=== PATIENT | female | born 1990 | race Caucasian/White ===

== ENCOUNTER 2016-09-19 03:04 | Emergency (ER) | payer OTHER ==
[~2016-09-19] VITALS: Ht 167.6 cm; Wt 102.5 kg
[~2016-09-19 03:04] MED LIST: DICL75 PO; SERT-132 PO
[2016-09-19 03:15] VITALS: BP 133/79; PULSE 117; RESP 20; TEMP 98.8; O2SAT 96
[2016-09-19 03:22] VITALS: BP 132/87; PULSE 91; RESP 18; TEMP 98.8; O2SAT 100
[2016-09-19] MEDS ORDERED: CYCL1TAB29 PO (03:54)
[2016-09-19] MEDS ORDERED: NORC5TAB PO (03:54)
--- NOTE | 2016-09-19 03:54 | PD ---
HPI . Low back pain Chief Complaint: Flank/Kidney Pain Time Seen by Provider: 03:23 Travel History International Travel<30 days: No Contact w/Intl Traveler<30days: No History of Present Illness HPI Patient presents with low back pain. She states that she's been having problems with low back pain for the last several months. She has been treated with homeopathic herbs. She tried using some ice on it last night and had temporary relief of her pain. She went to bed and was awakened couple of hours later by severe pain in her back. She denies any bowel or bladder incontinence. She has not been running any fever. She does state that she's had some left thigh pain in the last several days. She denies any extremity weakness. [id number]: Lower lumbar back DURATION: Several months TIMING: Acutely worse starting about an hour ago MODIFYING FACTORS: Exacerbated by movement ASSOCIATED SYMPTOMS: Left thigh pain PFSH Past Medical History Cancer: No Cardiovascular Problems: No Diabetes: No Diminished Hearing: No Endocrine: No Genitourinary: No Hepatitis: No Hiatal Hernia: No Immune Disorder: No Medical other: Yes (Back Surgery 2014) Musculoskeletal: Yes (BACK PAIN) Neurologic: No Psychiatric: No Reproductive: No Respiratory: No Thyroid Disease: No Influenza Vaccination: No ?: Not LMP: 08/30/2016 Menopausal: No : 1 Past Surgical History Surgical History: No Previous Surgery Body Medical Devices: PLATE AND SCREWS RIGHT LEG Section: Yes Gynecologic Surgery: Yes ( 04/20) Social History Alcohol Use: No Tobacco Use: No Substance Use: No Allergies-Medications (Allergen,Severity, Reaction): Coded Allergies: MRI PRECAUTION (Verified Adverse Reaction, Severe, 09/19/16) HAS METAL PLATE IN LEG Reported Meds & Prescriptions Reported Meds & Active Scripts Active Prednisone (48) 10 mg tab Dose Pack (Prednisone) 10 Mg Dspk 10 Mg PO DIRECTED Flexeril (Cyclobenzaprine HCl) 10 Mg Tab 10 Mg PO TID [place] (Hydrocodone-Acetaminophen) 5-325 mg Tab 1 Tab PO Q4H PRN Sertraline 50 mg (Sertraline HCl) 50 Mg Tab 1 Tab PO HS Diclofenac Sodium Dr (Diclofenac Sod) 75 Mg Tab 75 Mg PO DAILY Review of Systems Except as stated in HPI: all other systems reviewed are Neg General / Constitutional: No: Fever, Chills Genitourinary: No: Incontinence Musculoskeletal: Positive: Limited ROM, Pain (low back pain), No: Weakness Neurologic: No: Weakness, Paresthesia, Incontinence Physical Exam Narrative GENERAL: Awake and alert and in no acute distress. SKIN: Warm and dry. CARDIOVASCULAR: Regular rate and rhythm. RESPIRATORY: No accessory muscle use. MUSCULOSKELETAL: No obvious deformities. No edema. Tender in the lower lumbar region. Straight leg raise is positive on the left. Straight leg raise on the right is negative. NEUROLOGICAL: Awake and alert. No obvious cranial nerve deficits. Motor grossly within normal limits. Normal speech. PSYCHIATRIC: Appropriate mood and affect; insight and judgment normal. Data Data Last Documented VS Vital Signs Date Time Temp Pulse Resp B/P Pulse Ox O2 Delivery O2 Flow Rate FiO2 09/19/16 06:36 98 17 136/75 98 Room Air 09/19/16 03:22 98.8 Orders ^ Saline Lock (09/19/16 03:46) Morphine Inj (Morphine Inj) (09/19/16 04:00) Ondansetron Inj (Zofran Inj) (09/19/16 04:00) Lorazepam Inj (Ativan Inj) (09/19/16 04:00) Dexamethasone Inj (Decadron Inj) (09/19/16 04:00) Ketorolac Inj (Toradol Inj) (09/19/16 05:00) Mri L Spine W/O Contrast (09/19/16 05:33) Ed Urine Pregnancytest Poc (09/19/16 05:33) Hydromorphone Pf Inj (Dilaudid Pf Inj) (09/19/16 05:45) MDM Medical Decision Making Medical Screen Exam Complete: Yes Emergency Medical Condition: Yes Differential Diagnosis Differential diagnosis includes but is not limited to muscular low back pain, DDD, spinal stenosis, epidural abscess, sciatica, kidney infection or stone. Narrative Course Patient presents for treatment of low back pain. It sounds like she has sciatica. She reports little if any relief following morphine 4 mg IV, Ativan 1 mg IV and Decadron 10 mg IV. Patient continued to complain of pain following Toradol. I have subsequently ordered Dilaudid as well as an MRI of her L-spine. Her care will ultimately be turned over to the oncoming physician pending the MRI. Diagnosis Primary Impression: Low back pain Qualified Code: M54.42 - Chronic midline low back pain with left-sided sciatica Additional Impression: Sciatica Qualified Code: M54.32 - Sciatica of left side Patient Instructions: General Instructions, Narcotic given in the ED, Sciatica (DC) Scripts Prednisone (48) 10 mg tab Dose Pack 10 Mg Dspk10 Mg PO DIRECTED #1 DSPK Ref 0 Prov:Grisel Gaytan MD 09/19/16 Cyclobenzaprine (Flexeril)10 Mg Tab10 Mg PO TID #30 TAB Ref 0 Prov:Grisel Gaytan MD 09/19/16 Hydrocodone-Acetaminophen ([place])5-325 mg Tab1 Tab PO Q4H PRN (PAIN) #12 TAB Ref 0 Prov:Grisel Gaytan MD 09/19/16 Condition: Stable Grisel Gaytan MD Sep 19, 2016 03:54
[2016-09-19] MEDS ORDERED: LORazepam 2 MG/ML VIAL IV PUSH ONE (04:00)
[2016-09-19] MEDS ORDERED: MORPHINE SULFATE 4 MG/ML INJ IV PUSH ONE (04:00)
[2016-09-19] MEDS ORDERED: DEXAMETHASONE SOD PHOS 20 MG/5 ML VIAL IV PUSH ONE (04:00)
[2016-09-19] MEDS ORDERED: ONDANSETRON HCL 4 MG/2 ML VIAL IV PUSH ONE (04:00)
[2016-09-19] MEDS ORDERED: KETOROLAC TROMETHAMINE 30 MG/ML (IVP) VIAL IV PUSH ONE (05:00)
[2016-09-19] MEDS ORDERED: PRED10PA2 PO (05:38)
[2016-09-19] MEDS ORDERED: HYDROmorphone HCL PF 1 MG/ML VIAL IV PUSH ONE (05:45)
[2016-09-19 06:36] VITALS: BP 136/75; PULSE 98; RESP 17; O2SAT 98
[2016-09-19 08:35] VITALS: BP 146/71; PULSE 99; RESP 18; O2SAT 96
--- NOTE | 2016-09-19 09:36 | RADHPO ---
EXAM DATE/TIME: 09/19/2016 07:39 [facility] COMPARISON: SPINE LUMBAR LATERAL ONLY, February 22, 2015, 6:59. INDICATIONS: Pain. NKI. Pain worse on left side. MEDICAL HISTORY: None. SURGICAL HISTORY: Microdiscectomy L4-5. Left ankle. ENCOUNTER: Initial ACUITY: 1 day PAIN SCORE: 6/10 LOCATION: Back TECHNIQUE: Multiplanar multisequence MRI of the lumbar spine was performed without contrast. FINDINGS: Marrow signal by MRI appears homogeneous and normal. Signal intensity in the conus is normal. L1-L2: The thecal sac has a normal diameter. No evidence of disc bulge or protrusion. The neural f oramina are patent bilaterally. L2-L3: The thecal sac has a normal diameter. No evidence of disc bulge or protrusion. The neural f oramina are patent bilaterally. L3-L4: There is very mild bulging at L3-4 without significant spinal stenosis. Neural foramina are adequate. Facets are normal. L4-L5: The patient has a previous discectomy at L4-5. There is mild discogenic changes in the facet s with loss of dis space height. There is minimal soft tissue in the anterior epidural space without significant neural compression. L5-S1: There is mild disc bulge in L5-S1 more centered to the right than the left in spite of the hi story. There is no focal disc herniation. CONCLUSION: 1. Previous discectomy at L4-5 with mild discogenic changes at L4-5. 2. Mild facet disease on the left at L4-5. 3. Mild disc bulging on the right at L5-S1. There is no significant epidural scarring. Lam Velez MD FACR on September 19, 2016 at 9:03 Board Certified Radiologist. This report was verified electronically.
--- NOTE | 2016-09-19 09:42 | PD ---
Physical Exam Date Seen by Provider: Sep 19, 2016 Time Seen by Provider: 07:00 Narrative Patient signed out to me at [address] Gaytan, please see previous notes for further details. Signed out to me at 7 AM pending MRIs. MRI did not reveal any signs of acute processes. At this point, patient will be released with follow-up to primary care physician. Return for any worsening in symptoms as necessary. The plan has been discussed with her and she states understanding. Data Data Last Documented VS Vital Signs Date Time Temp Pulse Resp B/P Pulse Ox O2 Delivery O2 Flow Rate FiO2 09/19/16 08:35 99 18 146/71 96 Room Air 09/19/16 03:22 98.8 Orders ^ Saline Lock (09/19/16 03:46) Morphine Inj (Morphine Inj) (09/19/16 04:00) Ondansetron Inj (Zofran Inj) (09/19/16 04:00) Lorazepam Inj (Ativan Inj) (09/19/16 04:00) Dexamethasone Inj (Decadron Inj) (09/19/16 04:00) Ketorolac Inj (Toradol Inj) (09/19/16 05:00) Mri L Spine W/O Contrast (09/19/16 05:33) Ed Urine Pregnancytest Poc (09/19/16 05:33) Hydromorphone Pf Inj (Dilaudid Pf Inj) (09/19/16 05:45) MDM Medical Record Reviewed: Yes Supervised Visit with CHRIS: No Diagnosis Primary Impression: Low back pain Qualified Code: M54.42 - Chronic midline low back pain with left-sided sciatica Additional Impression: Sciatica Qualified Code: M54.32 - Sciatica of left side Patient Instructions: General Instructions, Narcotic given in the ED, Sciatica (DC) Scripts Prednisone (48) 10 mg tab Dose Pack 10 Mg Dspk10 Mg PO DIRECTED #1 DSPK Ref 0 Prov:Grisel Gaytan MD 09/19/16 Cyclobenzaprine (Flexeril)10 Mg Tab10 Mg PO TID #30 TAB Ref 0 Prov:Grisel Gaytan MD 09/19/16 Hydrocodone-Acetaminophen ([place])5-325 mg Tab1 Tab PO Q4H PRN (PAIN) #12 TAB Ref 0 Prov:Grisel Gaytan MD 09/19/16 Condition: Stable Milton Leone MD Sep 19, 2016 09:42
== END 2016-09-19 10:21 | disposition home or self-care (01) ==
LOC: PHED 03:04
DX: M54.5 Low back pain (principal); M54.32 Sciatica, left side; M79.652 Pain in left thigh
CPT/HCPCS: 72148; 84703; 96374; 96375; 99284; J1100; J1170; J1885; J2060; J2270; J2405